=== PATIENT | male | born 1980 | race African-American/Black ===

== ENCOUNTER 2017-01-28 14:13 | Emergency (ER) | payer MEDICAID ==
[~2017-01-28] VITALS: Ht 172.7 cm; Wt 75.0 kg
[2017-01-28] MEDS ORDERED: ONDANSETRON 4MG ODT PO ONE (15:00)
[2017-01-28] MEDS ORDERED: KETOROLAC 60MG/2ML VIAL IM ONE (15:00)
[2017-01-28 16:16] VITALS: BP 121/79
== END 2017-01-28 16:39 | disposition home or self-care (01) ==
LOC: ER 14:55
DX: G43.909 Migraine, unspecified, not intractable, without status migrainosus (principal)
CPT/HCPCS: 36415; 96372; 99283; G0482; J1885; Q0162; 80305

== ENCOUNTER 2017-06-25 13:34 | Emergency (ER) | payer MEDICAID ==
[~2017-06-25] VITALS: Ht 175.3 cm; Wt 75.0 kg
[2017-06-25] MEDS ORDERED: SODIUM CHLORIDE 0.9% 1,000 ML IV ONE (14:58)
[2017-06-25 15:28] LABS: AMMONIA 26 uMol/L (<32)
[2017-06-25 15:30] LABS: BASOPHILS % 0.9 % (0.0-2.0); CARBON DIOXIDE 30 mEq/L (21-32); CHLORIDE 105 mEq/L (98-107); EOSINOPHILS % 0.8 % (0.0-5.0); ETHANOL BLOOD < 10 mg/dL; HEMATOCRIT. 45.7 % (42.0-52.0); HEMOGLOBIN. 15.5 g/dL (14.0-18.0); LYMPHOCYTES % 37.2 % (20.0-50.0); MEAN CORPUSCULAR HEMOGLOBIN 31.8 pg (28.0-32.0); MEAN CORPUSCULAR VOLUME 93.7 fL (80.0-94.0); MEAN PLATELET VOLUME 9.2 fl (7.4-10.4); MONOCYTES % 6.7 % (2.0-8.0); NEUTROPHILS % 54.4 % (40.0-76.0); PLATELET 125 x1000/uL (130-400); RED BLOOD CELL COUNT 4.88 mill/uL (4.7-6.1); RED CELL DISTRIBUTION WIDTH 13.5 % (11.6-14.6)
[2017-06-25 15:34] LABS: CREATINE KINASE 152 IU/L (39-308); TROPONIN I < 0.02 ng/mL (0.00-0.04)
[2017-06-25] MEDS ORDERED: PHENYTOIN SODIUM 1,000 MG in SODIUM CHLORIDE 0.9% 100 ML IV NR (16:15)
[2017-06-25] MEDS ORDERED: LEVETIRACETAM 500MG PREMIX 100 ML IV ONE (17:15)
[2017-06-25 18:23] VITALS: BP 110/79
== END 2017-06-25 18:23 | disposition home or self-care (01) ==
LOC: ER 13:48
DX: G40.909 Epilepsy, unspecified, not intractable, without status epilepticus (principal); F17.200 Nicotine dependence, unspecified, uncomplicated; F12.10 Cannabis abuse, uncomplicated
CPT/HCPCS: 36415; 70450; 80053; 82140; 82550; 83605; 83690; 84484; 85025; 93005; 96361; 96365; 99285; G0482; J1165; J1953; J7030; 71010; 96368; J7050

== ENCOUNTER 2017-11-15 19:50 | Emergency (ER) | payer MEDICAID ==
[~2017-11-15] VITALS: Ht 167.6 cm; Wt 69.0 kg
[2017-11-15 20:39] VITALS: BP 119/87
== END 2017-11-16 00:01 | disposition left against medical advice (07) ==
LOC: ER 19:50
DX: K08.89 Other specified disorders of teeth and supporting structures (principal); Z87.891 Personal history of nicotine dependence; Z98.890 Other specified postprocedural states
CPT/HCPCS: 99281

== ENCOUNTER 2020-05-10 08:58 | Emergency (ER) | payer MEDICAID ==
[~2020-05-10] VITALS: Ht 170.2 cm; Wt 69.8 kg
[2020-05-10 09:12] VITALS: BP 124/77
== END 2020-05-10 09:59 | disposition home or self-care (01) ==
LOC: ER 08:58
DX: S10.96XA Insect bite of unspecified part of neck, initial encounter (principal); W57.XXXA Bitten or stung by nonvenomous insect and other nonvenomous arthropods, initial encounter; Y93.89 Activity, other specified; Y92.89 Other specified places as the place of occurrence of the external cause; Y99.8 Other external cause status
CPT/HCPCS: 99282